=== PATIENT | male | born 1975 | race Caucasian/White ===

== ENCOUNTER 2023-05-23 21:24 | Emergency (ER) | payer OTHER, SELFPAY ==
[2023-05-23 22:31] VITALS: BP 126/79; PULSE 63; RESP 18; TEMP 36.7; O2SAT 98; BMI 20.4
--- NOTE | 2023-05-23 22:39 | CRLHL7_ITS ---
For Patients: As a result of the Cures Act, medical imaging exams and procedure reports are released immediately into your electronic medical record. You may view this report before your referring provider. If you have questions, please contact your health care provider. INDICATION: Toe injury TECHNIQUE: Toe radiograph 3 views left 5th COMPARISON: None FINDINGS: Bone: There is a displaced intra-articular fracture along the distal aspect of the 5th proximal phalanx producing a gap in the articular surface of 3.7 mm. Joint: The metatarsophalangeal and interphalangeal joints are normal in appearance. Soft tissue: Unremarkable. No radiopaque foreign bodies are seen. IMPRESSION: 1. There is a displaced intra-articular fracture along the distal aspect of the 5th proximal phalanx producing a gap in the articular surface of 3.7 mm. Dictated by Larry Cruz MD @ 05/23/2023 11:11:13 PM Dictated by: Larry Cruz MD @ 05/23/2023 23:11:20 (Electronically Signed)
--- NOTE | 2023-05-24 00:03 | ED_ITS ---
HPI - Extremity Injury (Lower) General Time Seen by Provider: 00:03 Date Seen: 05/24/23 Chief Complaint: Extremity Pain/Injury, Lower Stated Complaint: Injured toe Time Seen by Provider: 05/23/23 23:53 Source: patient and RN notes reviewed Mode of arrival: ambulatory Limitations: no limitations History of Present Illness HPI Narrative: Patient is a 48-year-old male visiting his parents from [place] where he accidentally kicked the post of a bed just prior to leaving [facility]. He had pain in his left 5th toe, noted the toe to be rotated. Nothing else was inju red. Related Data Home Medications Medication Instructions Recorded Confirmed No Known Home Medications 05/23/23 05/23/23 Allergies Allergy/AdvReac Type Severity Reaction Status Date / Time pork derived (porcine) AdvReac Verified 05/23/23 22:34 tomato AdvReac Verified 05/23/23 22:34 PFSH PFSH Social History Smoking Status: Never smoker Do you use any of these nicotine containing products: None How often do you have a drink containing alcohol: never AUDIT-C Alcohol total score: 0 Non-prescribed substance use: denies use Exam Const: Vital Signs, click to edit/add: Vital Signs - 24 hr 05/23/23 22:31 Temperature 98.1 F Pulse Rate [Left P ulse Oximeter] 63 Respiratory Rate 18 Blood Pressure [Ri ght Upper Arm] 126/79 Pulse Oximetry 98 Oxygen Delivery Me thod Room Air Patient is a 48-year-old male that is seen exam room 6, did have his sock on which we did remove. His left 5th toe distally is rotated outward her laterally. There is no open wound, no loss of skin continuity. He has distal sensation that is intact. Was able to review with him his toe fractures nursing staff had already ordered this. There is displacement in rotation of this toe fracture. Did review with patient doing a block of this toe for anesthesia and then attempt at reducing the angulation. I did review with him that I think this might be surgical depending on how it heals or if the fracture continues to rotate. 2 mL was placed around the toe for essentially hematoma block and then some into the soft tissues. I did leave him for about 10 minutes or so to allow this to work. Went back and did feel palpable reduction. There was improved rotation, the distal aspect of the nail and the toe were l less rotated laterally. There was still a bit more lateral rotation then when I compared it to his right 5th toe. Unfortunately, I do not think I will get further rotation. It does look to be more straight and in alignment, this may be acceptable reduction. We discussed post reduction images but I do not think it is going to change of address clerk. We will see if this holds and he is going to need follow-up anyways. Documenting provider has reviewed patient's vital signs: yes Course Course ED Course: Patient had lidocaine and reduction of the fracture done, see under physical exam. Vital Signs Vital signs: Initial Vital Signs Temperature 98.1 F 05/23/23 22:31 Temperature Source Temporal Artery Scan 05/23/23 22:31 Pulse Rate 63 05/23/23 22:31 Respiratory Rate 18 05/23/23 22:31 Blood Pressure 126/79 05/23/23 22:31 Blood Pressure Mean 94 05/23/23 22:31 Blood Pressure Position Sitting 05/23/23 22:31 Pulse Oximetry 98 05/23/23 22:31 Oxygen Delivery Method Room Air 05/23/23 22:31 Vital Signs Temperature 98.1 F 05/23/23 22:31 Pulse Rate 63 05/23/23 22:31 Respiratory Rate 18 05/23/23 22:31 Blood Pressure 126/79 05/23/23 22:31 Pulse Oximetry 98 05/23/23 22:31 Oxygen Delivery Method Room Air 05/23/23 22:31 Temperature 98.1 F 05/23/23 22:31 Pulse Rate 63 05/23/23 22:31 Respiratory Rate 18 05/23/23 22:31 Blood Pressure 126/79 05/23/23 22:31 Pulse Oximetry 98 05/23/23 22:31 Oxygen Delivery Method Room Air 05/23/23 22:31 MDM - Extremity Injury (Lower) Imaging Data XR left fifth: Attestation: I have reviewed the pertinent imaging results. Radiologist's impression: Patient: SONI HAQ Facility:?[facility] Patient ID:?[id number] Site Patient ID:?[id number]. Site :?[id number] Study:?XRay Extremity Left 5TH TOE-05/23/2023 11:01:08 PM Ordering Physician:?PROVIDER TEMP Final Report: INDICATION: Toe injury TECHNIQUE: Toe radiograph 3 views left 5th COMPARISON: None FINDINGS: Bone: There is a displaced intra-articular fracture along the distal aspect of the 5th proximal phalanx producing a gap in the articular surface of 3.7 mm. Joint: The metatarsophalangeal and interphalangeal joints are normal in appearance. Soft tissue: Unremarkable. No radiopaque foreign bodies are seen. IMPRESSION: 1. There is a displaced intra-articular fracture along the distal aspect of the 5th proximal phalanx producing a gap in the articular surface of 3.7 mm. Dictated by Larry Cruz MD @ 05/23/2023 11:11:13 PM Dictated by: Larry Cruz MD @ 05/23/2023 23:11:20 (Electronic Signature) Discharge Plan Discharge Clinical Impression: Fracture of fifth toe, left, closed Patient Disposition: Home, Self-Care Condition: Stable Instructions: Toe Fracture (ED) Additional Instructions: Need to have this toe re-x-rayed on Monday when you follow-up in clinic or before if increasing pain or noted increased rotation of the toe again. Ultimately, you may need to see orthopedics or podiatry for further management of this toe. Use the postop shoe for immobilization. Ice and elevate this foot/toe as much as able to over the next few days to help decrease pain and swelling. Can use Tylenol and ibuprofen per bottle directions as needed for p ain control. Prescriptions: No Action No Known Home Medications Stand Alone Forms: MyHealth Info Instructions
[2023-05-24] MEDS: lidocaine HCL 2 % MULTIDOSE 20 ML VIAL INJECTION (00:35)
== END 2023-05-24 00:53 | disposition home or self-care (01) ==
LOC: ED 05-24 00:51
PROVIDERS: Emergency Provider Family Medicine
DX: S92.532A Displaced fracture of distal phalanx of left lesser toe(s), initial encounter for closed fracture (principal); W22.03XA Walked into furniture, initial encounter
CPT/HCPCS: 28515; 73660; 99283